=== PATIENT | female | born 2000 | race African-American/Black ===

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

== ENCOUNTER 2020-09-13 14:14 | Emergency (ER) | payer SELFPAY ==
[2020-09-13] MEDS ORDERED: Lidocaine Viscous Sol 2% 15 ml UD Cup ONE (14:58)
[2020-09-13] MEDS ORDERED: Mag-Al 1200 mg/1200 mg/30 ML UDCUP ONE (14:58)
== END 2020-09-13 15:40 | disposition home or self-care (01) ==
LOC: ERS 14:14
DX: K21.9 Gastro-esophageal reflux disease without esophagitis (principal); J45.909 Unspecified asthma, uncomplicated
CPT/HCPCS: 99283

== ENCOUNTER 2021-06-17 09:26 | Emergency (ER) | payer SELFPAY ==
[2021-06-17 19:39] LABS: SARS-CoV-2 PCR by NAA DETECTED (NotDetected)
== END 2021-06-17 11:35 | disposition home or self-care (01) ==
LOC: ERS 09:26
DX: U07.1 COVID-19 (principal)
CPT/HCPCS: 99283; U0003; U0005

== ENCOUNTER 2021-10-28 08:40 | Emergency (ER) | payer OTHER, SELFPAY ==
[2021-10-28] MEDS ORDERED: Lorazepam 2 MG/ML VIAL ONE (09:06)
[2021-10-28] MEDS ORDERED: Boostrix 0.5 ML (Tdap) VIAL ONE (09:08)
[2021-10-28] MEDS ORDERED: Lidocaine 1% PF 5 ML VIAL ONE (09:08)
== END 2021-10-28 10:20 | disposition home or self-care (01) ==
LOC: ERS 08:40
DX: N76.4 Abscess of vulva (principal); Z23 Encounter for immunization
CPT/HCPCS: 56405; 90471; 90715; 96374; J2060

== ENCOUNTER 2022-03-19 17:50 | Emergency (ER) | payer MEDICAID, SELFPAY ==
[2022-03-19 18:36] LABS: Bacteria/HPF None Seen HPF (None Seen); Bilirubin Negative (Negative); Blood, Urine 2+ (Negative); Clarity Clear (Clear); Glucose, Urine (Dipstick) Normal (Negative); Ketone, Urine Negative (Negative); Leukocyte Negative Leu/uL (Negative); Nitrite Negative (Negative); Pregnancy Test - Urine (BHCG) Negative (Negative); Pregu Control Background? CLEAR/WHITE (CLR/WHITE); Pregu Control Bar Appear? YES (CONTROL BAR); Protein, Urine (Dipstick) Negative (Neg-Trace); RBC/HPF 0-3 HPF (0-3); Specific Gravity 1.007 (1.002-1.036); Specific Gravity, Urine 1.007 (1.002-1.036); Squamous Epithelial 0-3 HPF (0-3); Urobilinogen Normal mg/dL (Less than 2); WBC/HPF 0-3 HPF (0-3); pH, Urine 6.5 (5.0-9.0)
[2022-03-19 18:38] LABS: #Basophils 0.1 thou/uL (0.0-0.2); #Lymphocytes 2.3 thou/uL (1.20-3.40); #Monocytes 0.6 thou/uL (0.11-0.59); #Neutrophils 2.7 thou/uL (1.40-6.50); %Basophils 1.1 % (0.0-1.0); %Eosinophils 0.5 % (0.0-10.0); %Lymphocytes 40.4 % (21.0-51.0); %Monocytes 10.3 % (0.0-10.0); %Neutrophils 47.7 % (42.0-75.0); Hemoglobin 11.5 g/dL (12.0-16.0); Mean Corpuscular HGB CONC 30.9 g/dL (32.0-36.0); Mean Corpuscular Hemoglobin 26.4 pg (27.0-31.0); Mean Corpuscular Volume 85.6 fL (78.0-98.0); Platelet Count 207 thou/uL (130-400); RBC Distribution Width 15.7 % (11.5-14.5); Red Blood Cell (RBC) Count 4.34 mill/uL (4.20-5.40); White Blood Cell (WBC) Count 5.6 thou/uL (4.8-10.8)
[2022-03-19 18:42] LABS: Amphetamine Not Detected (NotDetected); Barbiturates Screen Not Detected (NotDetected); Benzodiazepine Screen Not Detected (NotDetected); Cocaine Metabolite Screen Not Detected (NotDetected); Methadone Not Detected (NotDetected); Methamphetamine Not Detected (NotDetected); Opiate Screen Not Detected (NotDetected); Oxycodone Screen Not Detected (NotDetected); Phencyclidine (PCP) Not Detected (NotDetected); THC/Cannabinoid Screen Detected (NotDetected); Tricyclic Screen Not Detected (NotDetected)
[2022-03-19 18:59] LABS: ALT (SGPT) 8 U/L (8-55); AST (SGOT) 31 U/L (5-34); Albumin 4.6 g/dL (3.5-5.0); Alkaline Phosphatase 45 U/L (40-110); Anion Gap 11 mmol/L (10-20); BUN (Urea Nitrogen) 10 mg/dL (7.0-18.7); Bilirubin, Total 0.9 mg/dL (0.2-1.2); Calc. Creatinine Clearance 0 mL/min (70-130); Calcium 9.7 mg/dL (7.8-10.44); Carbon Dioxide 27 mmol/L (22-29); Chloride 104 mmol/L (98-107); Estimated GFR 81; Globulin 2.9 g/dL (2.4-3.5); Glucose 84 mg/dL (70-105); Potassium 3.4 mmol/L (3.5-5.1); Protein, Total 7.5 g/dL (6.0-8.3); Sodium 139 mmol/L (136-145)
== END 2022-03-19 20:33 | disposition left against medical advice (07) ==
LOC: ERS 17:50
DX: R07.9 Chest pain, unspecified (principal); Z53.29 Procedure and treatment not carried out because of patient's decision for other reasons; F17.290 Nicotine dependence, other tobacco product, uncomplicated
CPT/HCPCS: 36415; 70450; 71045; 80053; 80306; 81003; 81015; 81025; 84443; 84484; 85025; 85379; 93005

== ENCOUNTER 2022-05-27 08:50 | Emergency (ER) | payer SELFPAY | END 2022-05-27 10:17 | disposition home or self-care (01) | LOC: ERS 08:50 | DX: M25.572 Pain in left ankle and joints of left foot (principal); F17.290 Nicotine dependence, other tobacco product, uncomplicated; W18.42XA Slipping, tripping and stumbling without falling due to stepping into hole or opening, initial encounter ==

== ENCOUNTER 2023-02-09 12:28 | Emergency (ER) | payer SELFPAY ==
[2023-02-09] MEDS ORDERED: Acetaminophen 500 MG TAB ONE (14:48)
== END 2023-02-09 16:46 | disposition home or self-care (01) ==
LOC: ERS 12:28
DX: S93.402A Sprain of unspecified ligament of left ankle, initial encounter (principal); W18.42XA Slipping, tripping and stumbling without falling due to stepping into hole or opening, initial encounter

== ENCOUNTER 2023-04-27 07:54 | Emergency (ER) | payer SELFPAY ==
[2023-04-27] MEDS ORDERED: Ibuprofen 200 MG TAB ONE (08:53)
[2023-04-27] MEDS ORDERED: Ibuprofen 100 MG/5 ML UDCUP ONE (08:56)
[2023-04-27 09:37] LABS: SARS-CoV-2 NAA Rapid Test Not Detected (NotDetected)
== END 2023-04-27 10:05 | disposition home or self-care (01) ==
LOC: ERS 07:54
DX: B34.9 Viral infection, unspecified (principal); R19.7 Diarrhea, unspecified; F17.290 Nicotine dependence, other tobacco product, uncomplicated; Z20.822 Contact with and (suspected) exposure to COVID-19
CPT/HCPCS: 99283